=== PATIENT | female | born 1980 | race Caucasian/White ===

== ENCOUNTER 2018-05-07 09:05 | Outpatient (CLI) | payer OTHER ==
[2018-05-07 09:55] LABS: eGFR (Non-African) > 60
--- NOTE | 2018-05-07 13:29 | Diagnostic Imaging Report ---
FAM HERNANDEZ [facility] [address] [facility] [place] [facility] [address] [place], [place]. [address] Report Submission Date: May 07, 2018 10:29:21 AM CDT Patient Study Name: LANDRY RODRÍGUEZ Date: May 07, 2018 9:23:28 AM CDT Modality Type: DX Gender: F Description: CHEST : 76 Institution: [facility] Physician: FAM HERNANDEZ PA AND LATERAL CHEST HISTORY: Cough COMPARISON: None PA and Lateral Chest dated May 07 2018 demonstrates a normal cardiomediastinal silhouette. Pulmonary vascularity is normal. Lungs are clear. IMPRESSION: NO ACTIVE DISEASE. Electronically signed on May 07, 2018 10:29:21 AM CDT by: Gi WERNER
[2018-05-07 20:40] LABS: BASO % 0.5 % (0.0-1.5); EOS % 4.3 % (0.0-6.8); LYMPH ABS # 1.17 thou/uL (0.60-4.00); MCH. 27.1 pg (28.0-34.0); MCV 84.1 fL (80.0-100.0); MONOCYTE % 8.3 % (0.0-11.0); PLATELET COUNT 296 thou/uL (130-400)
== END 2018-05-07 09:07 ==
LOC: LAB 09:05
PROVIDERS: ATTEND Nurse Practitioner Family
DX: R05 Cough (principal)
CPT/HCPCS: 36415; 71046; 80053; 85025

== ENCOUNTER 2018-05-14 08:45 | Outpatient (CLI) | payer OTHER ==
--- NOTE | 2018-05-14 11:32 | Diagnostic Imaging Report ---
FAM HERNANDEZ [id number] [facility] [address] [place], [place]. [address] Report Submission Date: May 14, 2018 9:21:22 AM CDT Patient Study Name: LANDRY RODRÍGUEZ Date: May 14, 2018 8:50:12 AM CDT Modality Type: DX Gender: F Description: CHEST : 76 Institution: Physician: FAM HERNANDEZ Examination: PA and lateral chest. History: Evaluate lung antoine. COUGH X1 MONTH (Hx) Comparison exam: 07 May 2018 Findings: PA and lateral views of the chest demonstrates a normal cardiac and mediastinal silhouette. Mildly elevated right hemidiaphragm. No focal infiltrate. No blunting of the costophrenic margins. Osseous structures are appropriate for age. Impression: No acute pulmonary process. Electronically signed on May 14, 2018 9:21:22 AM CDT by: Morris WERNER
== END 2018-05-14 08:46 ==
LOC: RAD 08:45
PROVIDERS: ATTEND Nurse Practitioner Family
DX: R05 Cough (principal)
CPT/HCPCS: 71046